=== PATIENT | female | born 1985 | race Caucasian/White ===

== ENCOUNTER 2018-05-09 13:59 | Outpatient (REF) | payer BC, SELFPAY ==
--- NOTE | 2018-05-09 11:00 | PAPFT_PTH ---
PATIENT: Maris Gee LOC: [facility] U#:[id number] AGE/SX: 33/F ROOM: RE05/09/[address]: DENZEL Gonzalez : 1985 BED: DIS: 05/09/2018 SPEC #: [id number] RECD: 05/09/18 18:04 STATUS: ALEXEI MELECIO #: [id number] LENNIE: 05/09/18 11:[address]: Becka Watkins DEPT: [facility] Cytology RECD BY: Lexi Alonzo ENTERED: 05/09/18 18:04 SP TYPE: PAPFT OTHR DR: Matthew Baldwin MD Tissues: 1 - CX/ENDOCX FOR PAP SMEARS Procedures: PAP THIN PREP/UVM Screening HPV DNA PROBE Comments: [id number]
== END 2018-05-09 14:19 ==
LOC: LBN 13:59
PROVIDERS: PCP Family Medicine; Visit Provider Nurse Practitioner Family
DX: Z12.4 Encounter for screening for malignant neoplasm of cervix (principal); Z11.51 Encounter for screening for human papillomavirus (HPV)
CPT/HCPCS: 88142; 87624

== ENCOUNTER 2018-11-03 06:53 | Day surgery (SDC) | payer BC, SELFPAY ==
[2018-11-03] VITALS (9 sets, daily range): BP systolic 109–127; BP diastolic 56–78; PULSE 69–77; RESP 13–17; TEMP 36.1–36.7; O2SAT 99–100
[2018-11-03] MEDS: Lactated Ringers 1,000 ML 125 ML IV (08:30)
[2018-11-03 08:34] LABS: Mean Corp. HGB Concentration 34.3 g/dL (32.0-36.0); Mean Corpuscular Volume 81.6 fL (80-95); Mean Platelet Volume 9.6 fL (8.0-11.0); Platelet Count 320 x1000/uL (130-400); RBC 4.29 m/cumm (4.00-5.20); RBC Distribution Width 13.3 % (11.7-14.6); White Blood Cell Count 6.83 k/cumm (4.4-10.8)
--- NOTE | 2018-11-03 09:22 | POCSPONT_PTH ---
PATIENT: Maris Gee LOC: [facility] U#:[id number] AGE/SX: 33/F ROOM: RE11/03/[address]: Nikita Moya MD : 1985 BED: DIS: 11/03/2018 SPEC #: [id number] RECD: 11/03/18 12:14 STATUS: ALEXEI REPrasad #: [id number] LENNIE: 11/03/18 09:[address]: Nikita Moya DEPT: Surgical Specimen RECD BY: Lexi Alonzo ENTERED: 11/03/18 12:15 SP TYPE: POCSPONT OTHR DR: Matthew Baldwin MD Tissues: 1 - ,SPONTANEOUS Procedures: GROSS AND MICRO LEVEL 4 Comments: [id number]
--- NOTE | 2018-11-21 11:40 | ROE_ITS ---
DATE OF PROCEDURE: November 03, 2018 PREOPERATIVE DIAGNOSIS: Incomplete spontaneous . POSTOPERATIVE DIAGNOSIS: Same as above. SURGEON: Nikita Moya M.D. MINING HELPER: None. ESTIMATED BLOOD LOSS: 100 mL's FLUIDS: See Anesthesia record. PROCEDURE: The patient was taken to the Operating Room. After an adequate level of anesthesia was o btained, the patient was placed in the lithotomy position. The patient was prepped and draped in the usual sterile manner. A weighted speculum was placed in the vagina with good visualization of the c ervix. The cervix was grasped with an Allis forceps and gently dilated with Vuong dilators. A 9 Luis nch curved suction curette was advanced without difficulty and the suction apparatus was activated. Copious products of conception were retrieved. The uterus was enlarged and boggy and there was signi ficant concern for hemorrhage and bleeding was somewhat heavier than what was deemed angélica l. She was given oxytocin IV as well as tranexamic acid. Several passes of sharp curettage followed by suction curettage were made to ensure complete removal of all products of conception and blood cl ots that occupied the uterus. At the conclusion the uterus was well contracted. An ultrasound intr aoperatively was performed to ensure complete evacuation of the uterus, which was confirmed. All ins trumentation was removed. The patient was transferred back in stable condition.
== END 2018-11-03 12:30 | disposition home or self-care (01) ==
PROVIDERS: PCP Family Medicine; Visit Provider Obstetrics & Gynecology
PROC: (CPT 59841; principal; 2018-11-03 08:30)
DX: O03.4 Incomplete spontaneous abortion without complication (principal); Z67.10 Type A blood, Rh positive
CPT/HCPCS: 59812; 36415; 85027; 86850; 86900; 86901; 88305; J1100; J2250; J2405; J3490

== ENCOUNTER 2019-02-27 10:28 | Outpatient (CLI) | payer BC, SELFPAY ==
[2019-02-27 13:22] LABS: HCG Quant, Pregnancy 23828 mIU/mL (1-3)
== END 2019-02-27 10:48 ==
PROVIDERS: PCP Family Medicine; Visit Provider Obstetrics & Gynecology Gynecology
DX: Z32.01 Encounter for pregnancy test, result positive (principal)
CPT/HCPCS: 36415; 84702

== ENCOUNTER 2019-03-03 03:17 | Outpatient (CLI) | payer BC, SELFPAY ==
--- NOTE | 2019-03-03 10:11 | DI.US_ITS ---
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 COMPARISON: No exams were available for comparison FINDINGS: Patient reportedly has history of approximately 9 week gestation. 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 No well-defined gestat ional sac seen. No intrauterine pole identified. No free fluid identified in the cul-de-sac. The ovaries are grossly unremarkable with presumed 23 millimeter right corpus luteal cyst. 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
== END 2019-03-03 03:37 ==
PROVIDERS: PCP Family Medicine; Visit Provider Obstetrics & Gynecology Gynecology
DX: O03.9 Complete or unspecified spontaneous abortion without complication (principal); N83.11 Corpus luteum cyst of right ovary
CPT/HCPCS: 76801

== ENCOUNTER 2019-03-29 01:34 | Outpatient (CLI) | payer BC, SELFPAY ==
--- NOTE | 2019-03-29 08:16 | DI.MRI_ITS ---
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 TECHNIQUE: Multiplanar multisequence MRI was performed. COMPARISON: No exams were available for comparison FINDINGS: Note is made of a bicornuate uterus. There does appear to be a single cervix. Endometrium appeared to be grossly unremarkable. No uterine mass is identified. The left ovary is enlarged. There is a 4.6 centimeter left ovarian cyst. The right ovary measures 1 .6 cm. Small follicular cysts are present. There is a trace amount of free fluid in the pelvis whic h is likely physiologic. Marrow signal is within normal limits. Bowel appears unremarkable. IMPRESSION: 1. Findings of a bicornuate uterus. 2. 4.6 cm left ovarian cyst.
== END 2019-03-29 01:54 ==
PROVIDERS: PCP Family Medicine; Visit Provider Obstetrics & Gynecology
DX: Q51.9 Congenital malformation of uterus and cervix, unspecified (principal); N83.292 Other ovarian cyst, left side; Q51.3 Bicornate uterus; N96 Recurrent pregnancy loss
CPT/HCPCS: 72195

== ENCOUNTER 2019-07-10 09:17 | Outpatient (REF) | payer BC, SELFPAY ==
--- NOTE | 2019-07-10 13:15 | PAPFT_PTH ---
PATIENT: Maris Gee LOC: [facility] U#:[id number] AGE/SX: 34/F ROOM: RE07/10/[address]: DENZLE Gonzalez : 1985 BED: DIS: 07/10/2019 SPEC #: [id number] RECD: 07/11/19 12:15 STATUS: OMAIRASue REPrasad #: [id number] LENNIE: 07/10/19 13:[address]: Becka Watkins DEPT: [facility] Cytology RECD BY: Roque Daniels ENTERED: 07/11/19 12:16 SP TYPE: PAPFT OTHR DR: Matthew Baldwin MD Tissues: 1 - CX/ENDOCX FOR PAP SMEARS Procedures: PAP THIN PREP/UVM Screening HPV DNA PROBE Comments: [id number]
== END 2019-07-10 09:37 ==
LOC: LBN 09:17
PROVIDERS: PCP Family Medicine; Visit Provider Nurse Practitioner Family
DX: Z12.4 Encounter for screening for malignant neoplasm of cervix (principal); Z11.51 Encounter for screening for human papillomavirus (HPV)
CPT/HCPCS: 88142; 87624

== ENCOUNTER 2019-08-14 02:29 | Outpatient (CLI) | payer BC, SELFPAY ==
--- NOTE | 2019-08-14 13:15 | DI.US_ITS ---
EXAM: US OB 1ST TRIMESTER CLINICAL HISTORY: hx bicornacate uterus, , congenital uterine anomaly, Q51.9, Z34.90. COMPARISON: US US OB 1ST TRIMESTER from 03/03/2019 TECHNIQUE: Transabdominal Transvaginal first trimester obstetrical ultrasound performed. FINDINGS: There is a single living intrauterine gestation. Estimated sonographic age based on crown-rump lengt h is 7 weeks 5 days. heart rate is 162 beats per minute. The yolk sac was visualized. Both ovaries are visualized and are unremarkable. Corpus luteal cyst is seen on the left ovary. IMPRESSION: Single live intrauterine gestation as above. DATA REPOSITORY:
== END 2019-08-14 02:49 ==
PROVIDERS: PCP Family Medicine; Visit Provider Nurse Practitioner Women's Health
DX: Z34.91 Encounter for supervision of normal pregnancy, unspecified, first trimester (principal); N83.12 Corpus luteum cyst of left ovary; Z3A.01 Less than 8 weeks gestation of pregnancy
CPT/HCPCS: 76801

== ENCOUNTER 2019-09-04 03:05 | Outpatient (CLI) | payer BC, SELFPAY ==
[2019-09-04 16:04] LABS: Abs Immature Grans 0.02 k/cumm (0.0-0.09); Absolute Basophil Count 0.02 k/cumm (0.0-0.2); Absolute Eosinophil Count 0.21 k/cumm (0.0-0.7); Absolute Lymphocyte Count 2.29 k/cumm (1.2-3.4); Absolute Neutrophil Count 7.14 k/cumm (1.2-6.7); Basophils % 0.2; Eosinophils % 2.1; HCT 35.2 % (36.0-46.0); HGB 12.4 g/dL (12.0-15.5); Immature Grans % 0.2 %; Lymphocytes % 22.5; Mean Corp. HGB Concentration 35.2 g/dL (32.0-36.0); Mean Corpuscular Hemoglobin 28.3 pg (27.0-33.0); Mean Corpuscular Volume 80.4 fL (80-95); Mean Platelet Volume 9.6 fL (8.0-11.0); Monocytes % 4.9; Neutrophils % 70.1; Platelet Count 319 x1000/uL (130-400); RBC 4.38 m/cumm (4.00-5.20); RBC Distribution Width 13.3 % (11.7-14.6); White Blood Cell Count 10.18 k/cumm (4.4-10.8)
[2019-09-04 16:07] LABS: Kit/Specimen SENT
[2019-09-04 16:49] LABS: *AMPHETAMINES SCREEN URINE Negative (Negative); *BARBITURATES SCREEN URINE Negative (Negative); *BENZODIAZEPINES SCREEN URINE Negative (Negative); Cannabinoids THC Negative (Negative); Cocaine Screen,Urine Negative (Negative); METHADONE URINE SCREEN Negative (Negative); OPIATES URINE SCREEN Negative (Negative); Tricyclic Antidepressants Negative (Negative)
[2019-09-05 09:34] LABS: Hepatitis B Surface Ag Negative (Negative)
[2019-09-05 09:47] LABS: Rubella IgG Ab (UVM) Positive (See Note); Varicella IgG Antibody Positive (See Note)
[2019-09-05 09:49] LABS: HIV-1/2 Ag & Ab Screen Negative (Negative)
[2019-09-05 09:55] LABS: Hepatitis C Ab w Rflx HCV PCR Negative (Negative)
[2019-09-05 20:03] LABS: Chlamydia Result Negative (Negative); GC Result Negative (Negative)
[2019-09-06 11:26] LABS: Syphilis Total Ab w/Reflex Nonreactive (Nonreactive)
[2019-09-11 12:11] LABS: Buprenorphine Negative; Norbuprenorphine Negative
[2019-09-11 17:17] LABS: Result Summary POSITIVE CARRIER (Negative); Specimen WB Whole Blood
[2019-09-11 17:43] LABS: Result Summary NEGATIVE; Specimen WB Whole Blood
== END 2019-09-04 03:25 ==
PROVIDERS: PCP Family Medicine; Visit Provider Advanced Practice Midwife
DX: O09.511 Supervision of elderly primigravida, first trimester (principal); Z36.89 Encounter for other specified antenatal screening
CPT/HCPCS: 36415; 80307; 81329; 86787; 86803; 86850; 86900; 86901; 87340; 87389; 87491; 87591; 81220; 85025; 86762; 86780; 87086

== ENCOUNTER 2019-10-13 07:58 | Outpatient (CLI) | payer BC, SELFPAY ==
[2019-10-14 23:56] LABS: SARS-CoV-2 RNA Undetected (Undetected); SARS-CoV-2 Specimen Source Nasopharynx
== END 2019-10-13 08:18 ==
PROVIDERS: PCP Family Medicine; Visit Provider Family Medicine
DX: Z11.59 Encounter for screening for other viral diseases (principal)
CPT/HCPCS: U0003

== ENCOUNTER 2020-01-05 02:24 | Outpatient (CLI) | payer BC, SELFPAY ==
[2020-01-05 15:45] LABS: HCT 33.8 % (36.0-46.0); HGB 11.5 g/dL (11.2-15.7); MCV 85.4 fL (80-95); Platelet Count 219 10^3/uL (130-400); RBC 3.96 10^6/uL (3.93-5.22); RDW 12.8 % (11.7-14.6); RDW-SD 39.6 fL; WBC 12.29 10^3/uL (4.4-10.8)
[2020-01-05 15:55] LABS: Glucose,1 Hr (Glucola) 180 mg/dL (80-140)
== END 2020-01-05 02:44 ==
PROVIDERS: PCP Family Medicine; Visit Provider Obstetrics & Gynecology Gynecology
DX: Z34.92 Encounter for supervision of normal pregnancy, unspecified, second trimester (principal)
CPT/HCPCS: 36415; 82950; 85027

== ENCOUNTER 2020-01-31 00:34 | Outpatient (CLI) | payer BC, SELFPAY ==
--- NOTE | 2020-01-31 06:30 | DI.US_ITS ---
EXAM: US OB KHARI WEIGHT CLINICAL HISTORY: GEST DIABETES,O24.419 TECHNIQUE: Ultrasound performed using standard protocol. COMPARISON: US US OB 1ST TRIMESTER from 08/14/2019 FINDINGS: Ob ultrasound was performed utilizing 3rd trimester protocol. biometry is consistent with gest ational age of 33 weeks 5 days and an EDC of March 15, 2020. The estimated weight is 2176 grams which is at the 88th percentile for predicted gestational ag e. Placenta is posterior with no placenta previa. There is visually a normal quantity of amniotic fluid and the KHARI is 9. heart rate is 145 BPM. Fetus is in cephalic presentation. IMPRESSION: DATA REPOSITORY:
== END 2020-01-31 00:54 ==
PROVIDERS: PCP Family Medicine; Visit Provider Obstetrics & Gynecology
DX: O24.419 Gestational diabetes mellitus in pregnancy, unspecified control (principal); Z3A.33 33 weeks gestation of pregnancy
CPT/HCPCS: 76816

== ENCOUNTER 2020-01-31 10:01 | Outpatient (CLI) | payer BC, SELFPAY ==
--- NOTE | 2020-01-31 09:00 | NS.NUTBLAN_ITS ---
Maris referred for Medical Nutrition Therapy for gestational diabetes. Maris is 31 weeks with first child with elevated 1 hour GCT of 180. No family hx of Dm, BMI wnl, weight gain wnl. Maris has been checking her BS at home per MD recommendations. Fasting sugars reported < 95 mg/dl, post prandials blood sugars reported < 120 mg/dl. At this time, GDM is diet controlled. Weight gain of 12 lbs noted since start of . Diet recall indicates well balanced home made meals with emphasis on vegetarian sources of protein, whole grains and fruits and vegetables. Educated Maris on how to follow 175-200 g carbohydrate diet and how to lower glycemic index of meals by adding protein and healthy fats at meals. Provided meal plans and resources. Reviewed weight gain goals. Reviewed exercise recommendations. Plan: will continue to monitor blood sugars at home and follow up with tech writer via phone if has questions/concerns. Will meet with Maris at next [facility] appt. inn 2 weeks. 20 min face to face
== END 2020-01-31 10:21 ==
PROVIDERS: PCP Family Medicine; Visit Provider Dietitian, Registered
DX: O24.410 Gestational diabetes mellitus in pregnancy, diet controlled (principal); Z3A.31 31 weeks gestation of pregnancy; Z71.3 Dietary counseling and surveillance
CPT/HCPCS: 97802

== ENCOUNTER 2020-02-16 13:21 | Outpatient (CLI) | payer BC, SELFPAY ==
--- NOTE | 2020-02-16 11:00 | NS.NUTBLAN_ITS ---
Met with Maris at [facility]. Maris is 36 weeks with GDM that is diet controlled. We reviewed blood sugar logs that indicate fasting levels < 95 mg/dl however with 2 elevated post prandial levels in past week. Overall, GDM well controlled with diet and life style changes. Reviewed glycemic control with carb counting and balanced meals with healthy sources of fat and lean protein. Maris typically eats whole foods and very educated on importance of good nutrition. We also discussed nutrition while lactating. Plan: continue to follow balanced meals with carb intake of 40-50 g CHO at meals, 15-20 g CHO at snacks, walk daily 30 min if allowed by MD, follow up with financial underwriter via email or phone as needed. Follow up meeting at next [facility] appt.
== END 2020-02-16 13:41 ==
PROVIDERS: PCP Family Medicine; Visit Provider Dietitian, Registered
DX: O24.410 Gestational diabetes mellitus in pregnancy, diet controlled (principal); Z71.3 Dietary counseling and surveillance
CPT/HCPCS: 97803

== ENCOUNTER 2020-02-23 07:40 | Outpatient (CLI) | payer BC, SELFPAY ==
[2020-02-23 13:56] VITALS: TEMP 36.8
[2020-02-23 14:18] VITALS: BP 137/77; PULSE 75
--- NOTE | 2020-04-03 14:17 | W.OBNST ---
Date of service: 04/03/20 Time of Service: 14:17 NST Evaluation Reason for NST Reasons for Nonstress Test: GDM-DIET CONTROLLED Gestational Age Gestational Age in Weeks and Days: 38 Weeks and 3Days Test and Monitor Explained Test/Monitor Explained: Test Explained, Monitor Explained and Patient Verbalized Understanding Vital Signs Temperature: 98.2 F NST Information Date on Monitor: 02/23/20 Time on Monitor: 14:00 Date off Monitor: 02/23/20 Time off Monitor: 14:25 Total Time on Monitor: 25 NST Interventions: PO Hydration NST Evaluation Patient States Movement: Present FHR Baseline: 130 Variability: Absent Accelerations: 15x15 Decelerations: None NST Results: Reactive Note NST Note Note: Discussed excellenct glycemic control with pt. NST Reviewed and Verified by: Marylu Mcwilliams
[2020-04-03 14:18] VITALS: TEMP 36.8
== END 2020-02-23 14:35 ==
LOC: BCD 07:40 → OBS 13:48
PROVIDERS: PCP Family Medicine; Visit Provider Obstetrics & Gynecology Gynecology
DX: O24.410 Gestational diabetes mellitus in pregnancy, diet controlled (principal); Z3A.35 35 weeks gestation of pregnancy
CPT/HCPCS: 59025

== ENCOUNTER 2020-02-27 10:42 | Outpatient (CLI) | payer BC, SELFPAY ==
[2020-02-27 10:58] VITALS: BP 133/67; PULSE 80
--- NOTE | 2020-02-27 12:11 | PDOC.NST_ITS ---
Date of service: 02/27/20 Time of Service: 12:11 NST Evaluation Reason for NST Reasons for Nonstress Test: GDM-DIET CONTROLLED Gestational Age Gestational Age in Weeks and Days: 35 Weeks and 4Days Test and Monitor Explained Test/Monitor Explained: Test Explained, Monitor Explained and Patient Verbalized Understanding Vital Signs Blood Pressure: 133/67 Pulse: 80 NST Information Date on Monitor: 02/27/20 Time on Monitor: 10:43 Date off Monitor: 02/27/20 Time off Monitor: 11:06 Total Time on Monitor: 23 NST Interventions: PO Hydration NST Evaluation Patient States Movement: Present FHR Baseline: 140 Variability: Moderate 6-25 bpm Accelerations: 15x15 Decelerations: None NST Results: Reactive Note NST Note Note: weekly testing with NST. Scheduled for 03/05. Has an appointment with [facility] 03/05 in the morning for sonogram and consultation re: breech presentation and options., NST Reviewed and Verified by: Mely Moulton
[2020-02-27 12:12] VITALS: BP 133/67; PULSE 80
[2020-02-27 13:23] LABS: *AMPHETAMINES SCREEN URINE Negative (Negative); *BARBITURATES SCREEN URINE Negative (Negative); *BENZODIAZEPINES SCREEN URINE Negative (Negative); Cannabinoids THC Negative (Negative); Cocaine Screen,Urine Negative (Negative); METHADONE URINE SCREEN Negative (Negative); OPIATES URINE SCREEN Negative (Negative); Tricyclic Antidepressants Negative (Negative)
== END 2020-02-27 12:06 | disposition home or self-care (01) ==
LOC: BCD 10:42 → OBS 10:47
PROVIDERS: PCP Family Medicine; Visit Provider Advanced Practice Midwife
DX: O24.410 Gestational diabetes mellitus in pregnancy, diet controlled (principal); Z3A.35 35 weeks gestation of pregnancy
CPT/HCPCS: 59025; 80307; 87081

== ENCOUNTER 2020-03-05 07:52 | Outpatient (CLI) | payer BC, SELFPAY ==
[2020-03-05 13:14] VITALS: BP 119/70; PULSE 77; TEMP 36.8
[2020-03-05 13:49] VITALS: BP 119/70; PULSE 77
--- NOTE | 2020-03-06 13:53 | W.OBNST ---
Date of service: 03/05/20 Time of Service: 14:53 NST Evaluation Reason for NST Reasons for Nonstress Test: GDM-DIET CONTROLLED Gestational Age Gestational Age in Weeks and Days: 36 Weeks and 4Days Test and Monitor Explained Test/Monitor Explained: Test Explained, Monitor Explained and Patient Verbalized Understanding Vital Signs Blood Pressure: 119/70 Pulse: 77 Temperature: 98.2 F NST Information Date on Monitor: 03/05/20 Time on Monitor: 13:00 Date off Monitor: 03/05/20 Time off Monitor: 13:50 Total Time on Monitor: 50 NST Interventions: PO Hydration NST Evaluation Patient States Movement: Present FHR Baseline: 145 Variability: Moderate 6-25 bpm Accelerations: 15x15 Decelerations: None NST Results: Reactive Note NST Note NST Reviewed and Verified by: Rani Lion
[2020-03-06 13:54] VITALS: BP 119/70; PULSE 77; TEMP 36.8
--- NOTE | 2020-04-01 09:28 | W.OBNST ---
Date of service: 03/05/20 Time of Service: 13:12 NST Evaluation Reason for NST Reasons for Nonstress Test: GDM-DIET CONTROLLED Gestational Age Gestational Age in Weeks and Days: 38 Weeks and 3Days Test and Monitor Explained Test/Monitor Explained: Test Explained, Monitor Explained and Patient Verbalized Understanding Vital Signs Blood Pressure: 119/70 Pulse: 77 Temperature: 98.2 F NST Information Date on Monitor: 03/05/20 Time on Monitor: 13:00 Date off Monitor: 03/05/20 Time off Monitor: 13:50 Total Time on Monitor: 50 NST Interventions: PO Hydration NST Evaluation Patient States Movement: Present FHR Baseline: 145 Variability: Moderate 6-25 bpm Accelerations: 15x15 Decelerations: None NST Results: Reactive Note NST Note Note: Reactive, w/ multiple episodes of fm. NST Reviewed and Verified by: Isatu Davis
[2020-04-01 09:31] VITALS: BP 119/70; PULSE 77; TEMP 36.8
== END 2020-03-05 13:55 ==
LOC: BCD 07:52 → OBS 13:12
PROVIDERS: PCP Family Medicine; Visit Provider Advanced Practice Midwife
DX: O24.410 Gestational diabetes mellitus in pregnancy, diet controlled (principal); Z3A.36 36 weeks gestation of pregnancy
CPT/HCPCS: 59025

== ENCOUNTER 2020-03-11 07:30 | Outpatient (CLI) | payer BC, SELFPAY ==
[2020-03-11 09:42] VITALS: BP 126/74; PULSE 70; TEMP 36.9
[2020-03-11 10:05] VITALS: BP 126/74; PULSE 70
[2020-03-11 14:30] VITALS: BP 126/74; PULSE 70; TEMP 36.9
--- NOTE | 2020-03-11 14:30 | W.OBNST ---
Date of service: 03/11/20 Time of Service: 14:30 NST Evaluation Reason for NST Reasons for Nonstress Test: GDM-DIET CONTROLLED Gestational Age Gestational Age in Weeks and Days: 37 Weeks and 3Days Test and Monitor Explained Test/Monitor Explained: Test Explained, Monitor Explained and Patient Verbalized Understanding Vital Signs Blood Pressure: 126/74 Pulse: 70 Temperature: 98.4 F NST Information Date on Monitor: 03/11/20 Time on Monitor: 09:39 Date off Monitor: 03/11/20 Time off Monitor: 10:18 Total Time on Monitor: 39 NST Interventions: PO Hydration NST Evaluation Patient States Movement: Present FHR Baseline: 130 Variability: Moderate 6-25 bpm Accelerations: 15x15 Decelerations: None NST Results: Reactive Note Presentation Presentation Results: cephalic presentation, LOP NST Note NST Reviewed and Verified by: Rani Lion
--- NOTE | 2020-03-12 10:22 | DIABASSESS_ITS ---
Date of service: 03/12/20 Time of Service: 10:22 Diabetes Note NOTE: Followed up with Maris on phone today. She reports fasting BS < 95 mg/dl, and had 2 elevated post prandial blood sugars this week after eating large meals, otherwise PP wnl. Overall, GDM well controlled with diet/ lifestyle. Encouraged increased activity- walking 10 min after meals to help with pp glycemic control. Will continue to follow and support. requested blood sugar log to be emailed or sent. Time Spent in Nutritional Counseling and Treatment: 10 min
== END 2020-03-11 10:15 | disposition home or self-care (01) ==
LOC: BCD 07:39 → OBS 09:36
PROVIDERS: PCP Family Medicine; Visit Provider Advanced Practice Midwife
DX: O24.410 Gestational diabetes mellitus in pregnancy, diet controlled (principal); Z3A.37 37 weeks gestation of pregnancy
CPT/HCPCS: 59025; 76815

== ENCOUNTER 2020-03-18 06:51 | Outpatient (CLI) | payer BC, SELFPAY ==
[2020-03-18 16:14] VITALS: BP 135/71; PULSE 79; TEMP 36.6
[2020-03-18 16:58] VITALS: BP 135/71; PULSE 79; TEMP 36.6
--- NOTE | 2020-03-19 10:58 | W.OBNST ---
Date of service: 03/18/20 Time of Service: 10:58 NST Evaluation Reason for NST Reasons for Nonstress Test: GDM-DIET CONTROLLED Gestational Age Gestational Age in Weeks and Days: 38 Weeks and 3Days Test and Monitor Explained Test/Monitor Explained: Test Explained, Monitor Explained and Patient Verbalized Understanding Vital Signs Blood Pressure: 135/71 Pulse: 79 Temperature: 97.9 F Urine Results Urine Protein: Negative Urine Ketones: Positive Urine Glucose: Negative Urine Blood: Negative NST Information Date on Monitor: 03/18/20 Time on Monitor: 16:11 Date off Monitor: 03/18/20 Time off Monitor: 16:31 Total Time on Monitor: 20 NST Interventions: None and PO Hydration Contraction Frequency: 0 NST Evaluation Patient States Movement: Present FHR Baseline: 135 Variability: Moderate 6-25 bpm Accelerations: 15x15 Decelerations: None NST Results: Reactive Note NST Note Note: Category 1 nonstress test NST Reviewed and Verified by: Cassy Thao
[2020-03-19 10:59] VITALS: BP 135/71; PULSE 79; TEMP 36.6
== END 2020-03-18 17:01 | disposition home or self-care (01) ==
LOC: BCD 06:52 → OBS 14:49
PROVIDERS: PCP Family Medicine; Visit Provider Obstetrics & Gynecology
DX: O24.410 Gestational diabetes mellitus in pregnancy, diet controlled (principal); Z3A.36 36 weeks gestation of pregnancy
CPT/HCPCS: 59025

== ENCOUNTER 2020-03-25 13:40 | Outpatient (CLI) | payer BC, SELFPAY ==
[2020-03-25 16:07] VITALS: BP 138/64; PULSE 76; TEMP 36.8
[2020-03-25 16:10] VITALS: BP 138/64; PULSE 76
--- NOTE | 2020-03-25 16:53 | PDOC.NST_ITS ---
Date of service: 03/25/20 Time of Service: 16:53 NST Evaluation Reason for NST Reasons for Nonstress Test: GDM-DIET CONTROLLED Gestational Age Gestational Age in Weeks and Days: 38 Weeks and 3Days Test and Monitor Explained Test/Monitor Explained: Test Explained, Monitor Explained and Patient Verbalized Understanding Vital Signs Blood Pressure: 138/64 Pulse: 76 Temperature: 98.2 F Urine Results Urine Protein: Negative Urine Ketones: Positive Urine Glucose: Negative Urine Blood: Negative NST Information Date on Monitor: 03/25/20 Time on Monitor: 16:08 Date off Monitor: 03/25/20 Time off Monitor: 16:28 Total Time on Monitor: 20 NST Interventions: PO Hydration NST Evaluation Patient States Movement: Present FHR Baseline: 140 Variability: Moderate 6-25 bpm Accelerations: 15x15 Decelerations: None NST Results: Reactive Note NST Note Note: NST due to gestational diabetes. Induction of [place] [facility] [place]. NST Reviewed and Verified by: Mely Moulton
[2020-03-25 16:54] VITALS: BP 138/64; PULSE 76; TEMP 36.8
== END 2020-03-25 16:34 | disposition home or self-care (01) ==
LOC: BCD 13:51 → OBS 15:31
PROVIDERS: PCP Family Medicine; Visit Provider Advanced Practice Midwife
DX: O24.410 Gestational diabetes mellitus in pregnancy, diet controlled (principal); Z3A.38 38 weeks gestation of pregnancy
CPT/HCPCS: 59025

== ENCOUNTER 2020-07-05 14:04 | Outpatient (REF) | payer BC, SELFPAY ==
[2020-07-08 15:05] LABS: Chlamydia Result Negative (Negative); GC Result Negative (Negative)
== END 2020-07-05 14:05 | disposition home or self-care (01) ==
LOC: LBN 14:04
PROVIDERS: PCP Family Medicine; Visit Provider Advanced Practice Midwife
DX: Z11.3 Encounter for screening for infections with a predominantly sexual mode of transmission (principal)
CPT/HCPCS: 87491; 87591